=== PATIENT | female | born 1990 | race Native Hawaiian/Other Pacific Islander ===

== ENCOUNTER 2016-12-09 16:47 | Emergency (ER) | payer OTHER ==
[~2016-12-09] VITALS: Ht 167.6 cm; Wt 57.6 kg
[2016-12-09 17:57] VITALS: BP 98/71; TEMP 98
== END 2016-12-09 18:03 | disposition home or self-care (01) ==
LOC: ED 16:47
PROC: 2W3RX1Z Immobilization of Left Lower Leg using Splint (ICD-10-PCS; principal; 2016-12-09)
DX: S82.62XA Displaced fracture of lateral malleolus of left fibula, initial encounter for closed fracture (principal); W22.8XXA Striking against or struck by other objects, initial encounter; Y92.098 Other place in other non-institutional residence as the place of occurrence of the external cause
CPT/HCPCS: 99283; L4350

== ENCOUNTER 2017-04-25 17:12 | Emergency (ER) | payer OTHER ==
[~2017-04-25] VITALS: Ht 167.6 cm; Wt 58.5 kg
[2017-04-25 17:51] LABS: PLATELET COUNT 314 K/uL (152-353)
[2017-04-25 19:05] VITALS: BP 122/79; TEMP 98.2
== END 2017-04-25 19:15 | disposition home or self-care (01) ==
LOC: ED 17:12
PROVIDERS: Emergency Medicine
DX: S93.402A Sprain of unspecified ligament of left ankle, initial encounter (principal); S93.602A Unspecified sprain of left foot, initial encounter; Z33.1 Pregnant state, incidental; F19.10 Other psychoactive substance abuse, uncomplicated
CPT/HCPCS: 36415; 81025; 84702; 85027; 99283

== ENCOUNTER 2018-04-10 15:49 | Emergency (ER) | payer OTHER ==
[~2018-04-10] VITALS: Ht 167.6 cm; Wt 60.8 kg
[2018-04-10 16:01] VITALS: TEMP 98.3
[2018-04-10 16:40] LABS: PLATELET COUNT 361 K/uL (152-353)
[2018-04-10 16:49] LABS: POTASSIUM 3.9 mmol/L (3.6-5.2)
[2018-04-10 17:52] VITALS: BP 114/60
== END 2018-04-10 17:52 | disposition home or self-care (01) ==
LOC: ED 15:49
PROVIDERS: Family Medicine
DX: H05.222 Edema of left orbit (principal)
CPT/HCPCS: 36415; 80053; 85027; 96374; 96375; 99284; J1200; J1885; J2930